=== PATIENT | male | born 1970 | race Caucasian/White ===

== ENCOUNTER 2017-05-23 16:27 | Emergency (ER) | payer SELFPAY ==
--- NOTE | 2017-05-23 16:46 | ED.PDOC ---
History of Present Illness - General Chief Complaint: Trauma Stated Complaint: Traumatic head injury Time Seen by Provider: 05/23/17 16:27 Source: RN notes reviewed, EMS Exam Limitations: clinical condition - History of Present Illness Initial Comments: Patient arrived to ER via EMS intubated and unresponsive. Per EMS he was working under a truck on a lift and it fell on him striking his head. Intubated with blown pupils. In transit went into asystole. Given Epinephrine X1 and Atropine X2 and chest compressions started. Faint pulse felt and was in sinus rhythm on the monitor. Occurred: just prior to arrival Severity: severe Pain Location: head Method of Injury: direct blow Improving Factors: nothing Worsening Factors: nothing Loss of Consciousness: still comatose Allergies/Adverse Reactions: Allergies NO KNOWN ALLERGY Allergy (Unverified 06/04/14 21:48) Home Medications: Ambulatory Orders Citalopram Hydrobromide [Celexa] 40 mg PO ONCE 02/21/15 Ibuprofen [Motrin Tab] 600 mg PO Q8H PRN #15 tab 02/21/15 Review of Systems - Review of Systems Unable to Obtain Due To: intubated, clinical condition Past Medical History (General) - Patient Medical History Hx Hypertension: No Hx Diabetes: No - Vaccination History Hx Tetanus, Diphtheria Vaccination: Yes Hx Influenza Vaccination: No - Social History Hx Depression: Yes - Female History Patient : No Family Medical History - Family History Father Family History: Unknown Physical Exam - Physical Exam General Appearance: Other - Unresponsive & intubated Head Injury: flap - posterior aspect of scalp completely avulsed - skull visable Eye Exam: bilateral abnormal pupil - both pupils are fixed & dilated ENT Exam: no evidence of ENT injury Cardiovascular/Respiratory: normal breath sounds - on ventilator, other - No heart beat appreciated Extremity Exam: no evidence of injury Neurologic: other - Comatose/ Skin Exam: pallor - Mahamed Coma Score Best Eye Response ([place]): (1) no response Best Verbal Response (Mahamed): (1) no verbal response Best Motor Response (Mahamed): (1) no motor response Mahamed Total: 3 Progress - Progress Progress: 05/23/17 16:49 At initial exam patient had no pupillary response, no audible heart beat and no palpable pulse. He was pronounced @ 16:30 Departure - Departure Clinical Impression: Crushing injury of head Qualifiers: Encounter type: initial encounter Qualified Code(s): S07.9XXA - Crushing injury of head, part unspecified, initial encounter Time of Disposition: 16:50 Disposition: Departure Forms: ED Discharge - Pt. Copy, Patient Portal Self Enrollment Referrals: Tomas Alex MD [Primary Care Provider] - 1-2 Weeks Home Medications: Ambulatory Orders Citalopram Hydrobromide [Celexa] 40 mg PO ONCE 02/21/15 Ibuprofen [Motrin Tab] 600 mg PO Q8H PRN #15 tab 02/21/15
[2017-05-23 16:52] VITALS: TEMP 95.8; O2SAT 86
== END 2017-05-23 16:30 | disposition expired ==
LOC: ER 16:27
DX: S07.9XXA Crushing injury of head, part unspecified, initial encounter (principal); W24.0XXA Contact with lifting devices, not elsewhere classified, initial encounter; Y92.89 Other specified places as the place of occurrence of the external cause; Y99.0 Civilian activity done for income or pay